=== PATIENT | male | born 1995 | race Two or more races ===

== ENCOUNTER 2025-01-09 05:02 | Emergency (ER) | payer MEDICAID ==
[~2025-01-09] VITALS: Ht 175.3 cm; Wt 90.7 kg
[2025-01-09 06:18] LABS: CALCIUM, SERUM 8.4 mg/dL (8.5-10.1); CARBON DIOXIDE 29 mmol/L (21-32); CHLORIDE 104 mmol/L (98-107); GLUCOSE 111 mg/dL (74-106); POTASSIUM 3.7 mmol/L (3.5-5.1); SODIUM SERUM 138 mmol/L (136-145); UREA NITROGEN, BLOOD 20 mg/dL (7-18)
[2025-01-09 06:21] LABS: BASOPHILS # (AUTO) 0.1 K/uL (0.0-0.2); BASOPHILS % (AUTO) 1.3 % (0.0-2.0); EOSINOPHILS # (AUTO) 0.4 K/uL (0.0-0.7); EOSINOPHILS % (AUTO) 4.7 % (0.0-6.0); HEMATOCRIT 44 % (39-51); HEMOGLOBIN 15.2 g/dL (13.5-17.5); LYMPHOCYTES # (AUTO) 1.8 K/uL (0.8-4.8); LYMPHOCYTES % (AUTO) 23.8 % (20.0-44.0); MEAN CORPUSCULAR HEMOGLOBIN 30 PG (26.0-33.0); MEAN CORPUSCULAR HGB CONC 34 g/dl (31.0-36.0); MEAN CORPUSCULAR VOLUME 88 fL (80-96); MONOCYTES # (AUTO) 0.7 K/uL (0.1-1.30); MONOCYTES % (AUTO) 8.5 % (2.0-12.0); NEUTROPHILS # (AUTO) 4.8 K/uL (1.8-8.9); NEUTROPHILS % (AUTO) 61.7 % (43.0-81.0); PLATELET COUNT (AUTO) 267 K/uL (150-450); RED BLOOD CELL COUNT(AUTO) 5.05 MIL/uL (4.5-6.0); RED CELL DISTRIBUTION WIDTH 13.1 % (11.5-15.0); WHITE BLOOD COUNT (AUTO) 7.8 K/uL (4.3-11.0)
[2025-01-09 07:00] VITALS: BP 130/85; TEMP 98; O2SAT 98
== END 2025-01-09 07:02 | disposition home or self-care (01) ==
LOC: ER 05:10
DX: R07.89 Other chest pain (principal); I25.2 Old myocardial infarction; H53.8 Other visual disturbances; R42 Dizziness and giddiness
CPT/HCPCS: 36415; 71045-TC; 80048-TC; 84484-TC; 85025-TC

== ENCOUNTER 2025-04-14 14:01 | Emergency (ER) | payer MEDICAID ==
[~2025-04-14] VITALS: Ht 175.3 cm; Wt 93.0 kg
[2025-04-14] MEDS ORDERED: ASPIRIN 81 MG TAB.CHEW ONE (14:32)
[2025-04-14] MEDS: ASPIRIN 81 MG TAB.CHEW PO ONE (14:37)
[2025-04-14 14:39] LABS: PLATELET COUNT (AUTO) 275 K/uL (150-450); RED BLOOD CELL COUNT(AUTO) 5.46 MIL/uL (4.5-6.0); RED CELL DISTRIBUTION WIDTH 12.7 % (11.5-15.0); WHITE BLOOD COUNT (AUTO) 8.8 K/uL (4.3-11.0)
[2025-04-14 14:41] LABS: CALCIUM, SERUM 9.3 mg/dL (8.5-10.1); CREATININE 1.1 mg/dL (0.6-1.3); SODIUM SERUM 140 mmol/L (136-145); UREA NITROGEN, BLOOD 14 mg/dL (7-18)
[2025-04-14 18:19] VITALS: BP 127/79; TEMP 98.5; O2SAT 100
== END 2025-04-14 18:19 | disposition home or self-care (01) ==
LOC: ER 14:01
DX: R07.89 Other chest pain (principal); R06.02 Shortness of breath; R25.2 Cramp and spasm; Z86.79 Personal history of other diseases of the circulatory system; Z20.822 Contact with and (suspected) exposure to COVID-19
CPT/HCPCS: 36415; 71045-TC; 80048-TC; 84484-TC; 85025-TC

== ENCOUNTER 2025-04-16 09:37 | Emergency (ER) | payer SELFPAY ==
[~2025-04-16] VITALS: Ht 175.3 cm; Wt 93.0 kg
[2025-04-16] MEDS ORDERED: NITROGLYCERIN 0.4 MG/TAB BOTTLE ONE (10:16)
[2025-04-16] MEDS: NITROGLYCERIN 0.4 MG/TAB BOTTLE SL ONE (10:19)
[2025-04-16] MEDS ORDERED: MAG HYDROX/AL HYDROX/SIMETH 30 ML UDC ONE (10:25)
[2025-04-16] MEDS ORDERED: FAMOTIDINE/PF INJ 20 MG/2 ML VIAL IV ONE (10:26)
[2025-04-16] MEDS ORDERED: ASPIRIN 81 MG TAB.CHEW ONE (10:26)
[2025-04-16] MEDS: MAG HYDROX/AL HYDROX/SIMETH 30 ML UDC PO ONE (10:30)
[2025-04-16] MEDS: ASPIRIN 81 MG TAB.CHEW PO ONE (10:30)
[2025-04-16] MEDS: FAMOTIDINE/PF INJ 20 MG/2 ML VIAL IV ONE (10:30)
[2025-04-16 10:39] LABS: PLATELET COUNT (AUTO) 270 K/uL (150-450); RED BLOOD CELL COUNT(AUTO) 5.09 MIL/uL (4.5-6.0); RED CELL DISTRIBUTION WIDTH 13.2 % (11.5-15.0); WHITE BLOOD COUNT (AUTO) 11.9 K/uL (4.3-11.0)
[2025-04-16 10:50] LABS: CALCIUM, SERUM 9.2 mg/dL (8.5-10.1); CREATININE 1.1 mg/dL (0.6-1.3); SODIUM SERUM 138 mmol/L (136-145); UREA NITROGEN, BLOOD 13 mg/dL (7-18)
[2025-04-16 10:56] LABS: INR 1.04 (0.91-1.10)
[2025-04-16 10:57] LABS: ASPARTATE AMINOTRANSFERASE 16 U/L (15-37); TOTAL PROTEIN, SERUM 8.0 g/dL (6.4-8.2)
[2025-04-16] MEDS ORDERED: METHOCARBAMOL (500MG) 500 MG TABLET ONE (12:05)
[2025-04-16] MEDS: METHOCARBAMOL (750MG) 750 MG TABLET PO ONE (12:09)
[2025-04-16 13:53] VITALS: BP 147/80; TEMP 99; O2SAT 100
== END 2025-04-16 13:55 | disposition home or self-care (01) ==
LOC: ER 09:41
DX: R07.89 Other chest pain (principal); R06.02 Shortness of breath; Z86.79 Personal history of other diseases of the circulatory system
CPT/HCPCS: 99285; 96374; 71045; 93005 ×2; 85025; 80048; 80076; 85378; 36415; 84484 ×2; 85730; J1308